=== PATIENT | female | born 1980 | race Asian ===

== ENCOUNTER 2024-10-17 12:36 | Emergency (ER) | payer BC, OTHER ==
[~2024-10-17] VITALS: Ht 157.5 cm; Wt 45.2 kg
[2024-10-17 13:43] VITALS: BP 110/64; PULSE 71; RESP 16; TEMP 98.7; O2SAT 97
--- NOTE | 2024-10-17 14:30 | ED.PDOC ---
Back pain HPI HPI Comments 44 y/o F, with no prior medical history presents to the ED for CC of back pain. Patient states, she has been experiencing lower back pain that radiates to her posterior right leg onset, this morning (10/17/24). Patient reports, she did workout at the gym yesterday (10/16/24) however, denies any strenuous lifting or bending. Patient comments, back pain to worsen with movement and is unable to walk at this time. No other symptoms or modifying factors present at this time. Denies history of chronic steroid use or history of osteoporosis Denies any history of cancer Denies fevers chills night sweats nausea vomiting unintentional weight loss Denies IV drug use history of HIV/TB Denies abdominal "tearing" pain Denies syncope Denies urinary incontinence or urinary changes Denies numbness tingling of the groin or inner thigh Denies previous back procedure or surgery Chief Complaint: Back Pain Time Seen by MD: 14:05 Primary Care Provider: JOSE C Araujo Notes: Nurses Notes, Medications, Allergies Allergies: Coded Allergies: Acetaminophen (Verified Allergy, Unknown, 10/17/24) Home Meds Active Scripts Naproxen (Naproxen) 500 Mg Tab, 500 MG PO BIDPC for 7 Days, #14 TAB 0 Refills Prov:RADHAMES CARRANZA NP 10/17/24 Methocarbamol (Methocarbamol) 500 Mg Tab, 500 MG PO Q8HP PRN for 10 Days, #30 TAB 0 Refills Prov:RADHAMES CARRANZA TELEVISION ANALYZER 10/17/24 Information Source: Patient Mode of Arrival: Ambulatory Timing: Days Duration: Since onset Location of Back pain: (B) Lumbar Radiates to: Posterior: (R) Thigh Severity: Moderate Prehospital treatment: None Onset: Spontaneous Circumstance: Sporting History of: Other Modifying Factors: Walking; No Movement, No Twisting, No Breathing, No Nothing, No Other Past Medical History PAST MEDICAL HISTORY: Denies Surgical History: Denies all surgeries [employer] History: Denies all [employer] WORKER Hx Family History Family History: Unknown Social History Smoker: Non-Smoker Alcohol: Denies ETOH Use Drugs: Denies Drug Use Lives In: Home All Other Systems: Reviewed and Negative ( PER HPI) Physical Exam General Appearance: No Apparent Distress, Normal HEENT: Normal ENT Inspection, Pharynx Normal, TMs Normal Neck: Full Range of Motion, Non-Tender, Normal, Normal Inspection Respiratory: Chest Non-Tender, Lungs Clear, No Accessory Muscle Use, No Respiratory Distress, Normal Breath Sounds Cardiovascular: No Edema, No Murmur, No Gallop, Normal Peripheral Pulses, Regular Rate/Rhythm Breast Exam: Deferred Gastrointestinal: No Organomegaly, Non Tender, No Pulsatile Mass, Normal Bowel Sounds, Soft Genitalia: Deferred Pelvic: Deferred Rectal: Deferred Extremities: No calf tenderness, Normal capillary refill, Normal inspection, Normal range of motion, Non-tender, No pedal edema Musculoskeletal : Location: Bilateral Extremity Location: Back (no gross abnormality, no midline ttp, no bone sep offs to palpation, localized ttp to the lumboscral peraspinal region, right straight leg raise test +) Apperance: Normal Neurologic: Alert, clinical nutritionist II-XII nml as Tested, No Motor Deficits, Normal Affect, Normal Mood, No Sensory Deficits Cerebellar Function: Normal Reflexes: Normal Skin: Dry, Normal Color, Warm Lymphatic: No Adenopathy Was a procedure done? Was a procedure done?: No Back Pain Differential Dx Differential Diagnosis: Musculoskeletal Pain, Strain X-Ray, Labs, Meds, VS Vital Signs Date Time Temp Pulse Resp B/P (MAP) Pulse Ox O2 Delivery O2 Flow Rate FiO2 10/17/24 13:43 71 16 97 Room Air 10/17/24 13:43 98.7 77 16 110/64 (79) 98 98.7 10/17/24 12:45 99.8 74 20 101/67 (78) 98 99.8 Current Medications Medications (Trade) Dose Ordered Sig/Domo Route Start Time Stop Time Status Last Admin Ketorolac Tromethamine (Toradol Injection) 60 mg ONCE ONCE IM 10/17/24 14:30 10/17/24 14:31 DC 10/17/24 14:41 Methylprednisolone Sodium Succinate (Solu Medrol) 125 mg ONCE ONCE IM 10/17/24 14:30 10/17/24 14:31 DC 10/17/24 14:40 X-Ray, Labs, Meds, VS Comment 44 y/o F, with no prior medical history presents to the ED for CC of back pain. Patient arrives alert and oriented, ABC's intact, afebrile, vital signs stable, saturating well in room air Given patient's history and exam: Sciatica, cord compression, cauda equina, aortic dissection, Guillain-Lathrop syndrome, epidural hematoma/abscess were all considered. Patient not toxic or ill-appearing. Vital signs within acceptable limits. Positive straight leg raise on exam with tenderness to the buttock consistent with sciatica. No vertebral point tenderness noted over the T or L- spine. No paraspinal muscle tenderness noted. No fever or IV drug use the. The differential for an acute vascular, neurologic, malignant, or infectious etiologies is much less likely given his/her presentation. The patient does not warrant a radiological exam at this time. The patient was given Medication for pain control in the ED. Advised patient to try to take alternating Ibuprofen and Tylenol to help with inflammation of the sciatic nerve and surrounding tissues and should try to do low back stretches but also try to rest and avoid excessive sitting and bending. On reassessment, the patient's symptoms improved, and patient was able to ambulate without assistive devices. The patient will f/u with PMD to see if his/her symptoms cam. An MRI may need to be ordered if the symptoms worsen or do not improve over time. The patient was counseled in regard to the diagnosis and management of the condition and verbalized understanding of this. The patient understands to return to the ER or seek immediate medical attention if the symptoms worsen or return. Additional MDM Review of External, Non-ED records: External records reviewed. Discussion with independent historian (EMS, family) history obtained from the patient/parents (if applicable) at bedside Chronic conditions affecting care: None Social determinants of health affecting care: None Consideration of admission (observation or admission): I considered escalation of care to admission for this patient, however given the reassuring workup, the patient is safe for outpatient management. Discussion with the Radiology: No Tests considered but not performed: Prescription medication considered but not given: Time of 1ST Reevaluation: 14:35 Reevaluation 1ST: Improved Patient Education/Counseling: Diagnosis, Treatment Family Education/Counseling: No Family Present Departure 1 Departure Time of Disposition: 14:34 Impression: Primary Impression: Lumbar radiculopathy Disposition: HOME / SELF CARE / HOMELESS Condition: Stable e-Prescriptions Naproxen (Naproxen) 500 Mg Tab 500 MG PO BIDPC for 7 Days, #14 TAB 0 Refills Prov: RADHAMES CARRANZA NP 10/17/24 Methocarbamol (Methocarbamol) 500 Mg Tab 500 MG PO Q8HP PRN for 10 Days, #30 TAB 0 Refills Prov: RADHAMES CARRANZA NP 10/17/24 Critical Care Note Critical Care Time?: No Stability Stability form required: No Heart Score Heart Score: Heart Score Response (Comments) Value History N/A 0 EKG N/A 0 Age N/A 0 Risk Factors N/A 0 Troponin N/A 0 Total 0 I personally scribed for RADHAMES CARRANZA NP ([email or web address]) on 10/17/24 at 14:30. Electronically submitted by Florence Crespo ([email or web address]). RADHAMES CARRANZA NP Oct 17, 2024 14:30
[2024-10-17] MEDS ORDERED: NAPR-746 PO (14:35)
[2024-10-17] MEDS ORDERED: METH-1181 PO (14:35)
[2024-10-17] MEDS: methylPREDNISolone SOD SUCC 125 MG/2 ML VL IM ONE (14:40)
[2024-10-17] MEDS: KETOROLAC TROMETH 60MG/2ML VIAL IM ONE (14:41)
== END 2024-10-17 15:17 | disposition home or self-care (01) ==
LOC: ER 12:48
DX: M54.16 Radiculopathy, lumbar region (principal); Z88.1 Allergy status to other antibiotic agents
CPT/HCPCS: 96372; 99284; J1885; J2919